=== PATIENT | male | born 1945 | race Caucasian/White ===

== ENCOUNTER 2021-03-11 14:14 | Emergency (ER) | payer OTHER ==
[~2021-03-11] VITALS: Ht 170.2 cm; Wt 75.0 kg
[2021-03-11 16:55] VITALS: BP 135/114
[2021-03-11] MEDS ORDERED: ALBU8HFA PO (17:14)
[2021-03-11] MEDS ORDERED: BENZ-16 PO (17:14)
== END 2021-03-11 17:53 | disposition home or self-care (01) ==
LOC: ER 14:14
DX: U07.1 COVID-19 (principal); Z88.0 Allergy status to penicillin; Z79.899 Other long term (current) drug therapy; Z87.891 Personal history of nicotine dependence
CPT/HCPCS: 71045; 99283